=== PATIENT | male | born 2005 | race Caucasian/White ===

== ENCOUNTER 2025-03-30 02:16 | Emergency (ER) | payer OTHER ==
[~2025-03-30] VITALS: Ht 180.3 cm; Wt 70.9 kg
[2025-03-30 02:54] VITALS: BP 173/101
== END 2025-03-30 02:55 | disposition home or self-care (01) ==
LOC: ED 02:16
DX: Z04.1 Encounter for examination and observation following transport accident (principal); J45.909 Unspecified asthma, uncomplicated
CPT/HCPCS: 99282

== ENCOUNTER 2025-03-30 04:45 | Emergency (ER) | payer OTHER ==
[~2025-03-30] VITALS: Ht 180.3 cm; Wt 70.9 kg
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
[2025-03-30 05:14] LABS: BASOPHILS 0.5 % (0.2-1.2); HEMATOCRIT 40.2 % (40.1-51.0); HEMOGLOBIN 13.3 g/dL (13.7-17.5); MCH 30.9 PG (25.7-32.2); MCHC 33.1 g/dL (32.3-36.5); MCV 93.3 fL (79.0-92.2); MONOCYTES 9.7 % (5.3-12.2); NEUTROPHILS 68.5 % (34.0-67.9); PLATELET COUNT 373 K/uL (163-337); RBC 4.31 M/uL (4.63-6.08)
[2025-03-30 05:37] LABS: ACETAMINOPHEN 0 ug/mL (10-30); ALBUMIN 3.5 g/dL (3.4-5.0); ALBUMIN/GLOBULIN RATIO 1.06 (1.1-2.4); ALCOHOL, MEDICAL <3 ng/dL (<3); ALKALINE PHOSPHATASE 40 U/L (46-116); ALT (SGPT) 71 U/L (14-59); ANION GAP 8.9 (7-21); AST (SGOT) 32 U/L (15-37); BILIRUBIN, TOTAL 0.7 mg/dL (0.2-1.0); BUN/CREATININE RATIO 16.34 (6.0-28.6); CALCIUM 8.8 mg/dL (8.5-10.1); CARBON DIOXIDE 29 mmol/L (21-32); CHLORIDE 103 mmol/L (98-107); CREATININE, SERUM 1.04 mg/dL (0.70-1.30); GLOMERULAR FILTRATION RATE,EST 105 mL/min (>60); POTASSIUM 3.9 mmol/L (3.5-5.1); PROTEIN, TOTAL 6.8 g/dL (6.4-8.2); SALICYLATE <0.2 mg/dL (2.8-20.0); TSH, 3RD GENERATION 0.972 uIU/mL (0.358-3.740); UREA NITROGEN 17 mg/dL (7-18)
[2025-03-30 06:43] LABS: BILIRUBIN, URINE NEGATIVE (negative); BLOOD/HGB, URINE NEGATIVE (Negative); KETONE, URINE NEGATIVE (Negative); LEUK ESTERASE, URINE NEGATIVE (negative); NITRITE, URINE NEGATIVE (negative); PH, URINE 6.5 (5-7)
[2025-03-30 07:03] LABS: AMPHETAMINES, URINE POSITIVE (NEGATIVE); BARBITURATES, URINE NEGATIVE (NEGATIVE); BENZODIAZEPINE, URINE NEGATIVE (NEGATIVE); BUPRENORPHINE, URINE NEGATIVE (NEGATIVE); CANNABINOID, URINE POSITIVE (NEGATIVE); COCAINE, URINE NEGATIVE (NEGATIVE); ECSTASY, URINE NEGATIVE (NEGATIVE); FENTANYL, URINE NEGATIVE (NEGATIVE); METHADONE, URINE NEGATIVE (NEGATIVE); OPIATES, URINE NEGATIVE (NEGATIVE); OXYCODONE, URINE NEGATIVE (NEGATIVE); PHENCYCLIDINE, URINE NEGATIVE (NEGATIVE)
[2025-03-30 08:59] VITALS: BP 145/89
== END 2025-03-30 08:53 | disposition other institution, planned readmission (95) ==
LOC: ED 04:45
PROVIDERS: Family Medicine
DX: F15.10 Other stimulant abuse, uncomplicated (principal); F12.10 Cannabis abuse, uncomplicated; J45.909 Unspecified asthma, uncomplicated
CPT/HCPCS: 36415; 70450; 80053; 80307; 81003; 84443; 85025; 99284-25; G0480

== ENCOUNTER 2025-03-30 10:32 | Emergency (ER) | payer OTHER ==
[~2025-03-30] VITALS: Ht 180.3 cm; Wt 70.1 kg
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
[2025-03-30] MEDS ORDERED: OLANZapine 10 MG TABDIS PO ONE (12:00)
[2025-03-30 12:35] LABS: BASOPHILS 0.5 % (0.2-1.2); EOSINOPHILS 1.2 % (0.8-7.0); HEMATOCRIT 38.9 % (40.1-51.0); HEMOGLOBIN 12.9 g/dL (13.7-17.5); LYMPHOCYTES 22.4 % (21.8-53.1); MCH 30.9 PG (25.7-32.2); MCHC 33.2 g/dL (32.3-36.5); MCV 93.1 fL (79.0-92.2); MONOCYTES 10.3 % (5.3-12.2); NEUTROPHILS 65.1 % (34.0-67.9); PLATELET COUNT 342 K/uL (163-337); RBC 4.18 M/uL (4.63-6.08)
[2025-03-30 13:01] LABS: ACETAMINOPHEN 0 ug/mL (10-30); ALBUMIN 3.3 g/dL (3.4-5.0); ALBUMIN/GLOBULIN RATIO 1.03 (1.1-2.4); ALCOHOL, MEDICAL <3 ng/dL (<3); ALKALINE PHOSPHATASE 35 U/L (46-116); ALT (SGPT) 67 U/L (14-59); ANION GAP 11.6 (7-21); AST (SGOT) 27 U/L (15-37); BILIRUBIN, TOTAL 0.9 mg/dL (0.2-1.0); BUN/CREATININE RATIO 17.07 (6.0-28.6); CALCIUM 8.7 mg/dL (8.5-10.1); CARBON DIOXIDE 26 mmol/L (21-32); CHLORIDE 103 mmol/L (98-107); CREATININE, SERUM 0.82 mg/dL (0.70-1.30); GLOMERULAR FILTRATION RATE,EST 128 mL/min (>60); POTASSIUM 3.6 mmol/L (3.5-5.1); PROTEIN, TOTAL 6.5 g/dL (6.4-8.2); SALICYLATE 0.2 mg/dL (2.8-20.0); TSH, 3RD GENERATION 0.473 uIU/mL (0.358-3.740); UREA NITROGEN 14 mg/dL (7-18)
[2025-03-30 22:41] LABS: BILIRUBIN, URINE NEGATIVE (negative); BLOOD/HGB, URINE NEGATIVE (Negative); KETONE, URINE NEGATIVE (Negative); LEUK ESTERASE, URINE NEGATIVE (negative); NITRITE, URINE NEGATIVE (negative)
[2025-03-30 22:55] LABS: AMPHETAMINES, URINE POSITIVE (NEGATIVE); BARBITURATES, URINE NEGATIVE (NEGATIVE); BENZODIAZEPINE, URINE NEGATIVE (NEGATIVE); BUPRENORPHINE, URINE NEGATIVE (NEGATIVE); CANNABINOID, URINE POSITIVE (NEGATIVE); COCAINE, URINE NEGATIVE (NEGATIVE); ECSTASY, URINE NEGATIVE (NEGATIVE); FENTANYL, URINE NEGATIVE (NEGATIVE); METHADONE, URINE NEGATIVE (NEGATIVE); OPIATES, URINE NEGATIVE (NEGATIVE); OXYCODONE, URINE NEGATIVE (NEGATIVE); PHENCYCLIDINE, URINE NEGATIVE (NEGATIVE)
[2025-03-31] MEDS ORDERED: OLANZapine 10 MG TABDIS PO ONE (07:45)
[2025-03-31 07:55] VITALS: BP 143/111
== END 2025-03-31 07:55 ==
LOC: ED 10:32
PROVIDERS: Emergency Medicine
DX: F29 Unspecified psychosis not due to a substance or known physiological condition (principal); F15.10 Other stimulant abuse, uncomplicated; J45.909 Unspecified asthma, uncomplicated
CPT/HCPCS: 36415; 80053; 80307; 81003; 84443; 85025; 99285; A9270; G0480